=== PATIENT | female | born 1965 | race Caucasian/White ===

== ENCOUNTER 2021-02-16 11:36 | Emergency (ER) | payer MEDICAID ==
[2021-02-16 13:52] LABS: CHLORIDE,CL 106 mmol/L (98-107); SODIUM,NA 143 mmol/L (136-145)
[2021-02-16 14:07] LABS: ANION GAP 12.5 meq/L (7-15)
--- NOTE | 2021-02-16 14:09 | EDM.PDOC ---
ED HPI GENERAL MEDICAL PROBLEM - General Chief Complaint: Respiratory Problem Stated Complaint: COVID +, SOB Time Seen by Provider: 02/16/21 12:06 Source of Information: Reports: Patient History Limitations: Reports: No Limitations - History of Present Illness INITIAL COMMENTS - FREE TEXT/NARRATIVE: Patient referred to ER by PCP to be checked out due to acute Covid symptoms. Te sted + today. Has acute URI symptoms/cough/sinus congestion. Can't tell if she has body aches as she is always achy and feels that she is not much more achy than usual. Low grade temp of around 99. Headache (hx chronic headaches). Feeling a bit SOB but admits that is a chronic problem. Does not report having more SOB than usual pattern. Has had pulmonary function testing in past and it is normal despite her chronic issues with allergies/fluid retention. Has lasix that she takes PRN excess fluid retention. Is on immunosuppressive medication for R.A. Treatments DIRECTOR VALIDATION: Reports: Other (see below) Other Treatments DIRECTOR VALIDATION: None Headache Pain Score (Numeric/FACES): 9 - Related Data Allergies Allergy/AdvReac Type Severity Reaction Status Date / Time etanercept [From Enbrel] Allergy Severe Shortness Verified 02/16/21 11:57 of Breath, Angioedema Penicillins Allergy Severe Hives Verified 02/16/21 11:57 phenobarbital Allergy Severe Excitabilit Verified 02/16/21 11:57 y soy Allergy Severe congestion, Verified 02/16/21 12:02 cough vancomycin Allergy Severe Rash, Verified 02/16/21 12:02 itching codeine Allergy Nausea Verified 03/17/13 13:49 gabapentin Allergy memory Verified 02/16/21 12:02 loss, unable to function leflunomide [From Arava] Allergy Diarrhea Verified 02/16/21 11:58 meloxicam Allergy Cannot Verified 02/16/21 12:02 Remember methotrexate Allergy Rash Verified 02/16/21 12:02 niacin Allergy Hives Verified 03/17/13 13:49 pertussis vaccine,fluid Allergy Hives, Verified 02/16/21 12:02 [Pertussis Vaccine,Fluid] edema phenytoin sodium Allergy Vomiting Verified 03/17/13 13:49 [From Dilantin] phenytoin sodium extended Allergy Vomiting Verified 03/17/13 13:49 [From Dilantin] Sulfa (Sulfonamide Allergy Vomiting Verified 03/17/13 13:49 Antibiotics) tocilizumab [From Actemra] Allergy Swelling Verified 02/16/21 11:57 ct scan dye Allergy Severe Hives Uncoded 02/16/21 11:57 Home Meds: Home Meds Acetaminophen [Tylenol Extra Strength] 1,000 mg PO Q6H PRN 03/17/13 [History] Albuterol [Proventil HFA] 2 puff INH Q4H PRN 03/17/13 [History] Albuterol/Ipratropium [DuoNeb 3.0-0.5 MG/3 ML] 3 ml INH Q4HR PRN 03/17/13 [History] Cholecalciferol (Vitamin D3) [Vitamin D3] 2,000 unit PO DAILY 03/17/13 [History] Docusate Sodium [Colace] 100 mg PO Q2D PRN 03/17/13 [History] Escitalopram [Lexapro] 20 mg PO DAILY 03/17/13 [History] Hydroxychloroquine [Plaquenil] 200 mg PO BID@0800,209903/17/13 [History] Montelukast [Singulair] 10 mg PO BEDTIME 03/17/13 [History] Omeprazole [Prilosec] 20 mg PO BID@0800,209903/17/13 [History] Simvastatin [Zocor] 40 mg PO BEDTIME 03/17/13 [History] traMADol [Ultram] 50 mg PO BID PRN 03/17/13 [History] Calcium Carbonate/Vitamin D3 [Calcium 1,000 + D3 Caplet] 1 tab PO DAILY 02/16/21 [History] Furosemide [Lasix] 20 mg PO SXHCIV4H PRN 02/16/21 [History] Ibuprofen [Motrin] 800 mg PO BID PRN 02/16/21 [History] Meclizine [Antivert] 12.5 mg PO Q4HR MDD dizziness 02/16/21 [History] azaTHIOprine [Azathioprine] 50 mg PO DAILY@0800 02/16/21 [History] azaTHIOprine [Azathioprine] 100 mg PO BEDTIME 02/16/21 [History] busPIRone [Buspar] 5 mg PO ASDIRECTED PRN 02/16/21 [History] busPIRone [Buspar] 10 mg PO BID@0800,209902/16/21 [History] cycloSPORINE [Restasis Multidose] 1 drop PO BID@0800,2100 02/16/21 [History] diphenhydrAMINE [Benadryl] 12.5 mg PO Q4HR PRN 02/16/21 [History] diphenhydrAMINE [Benadryl] 25 mg PO BEDTIME 02/16/21 [History] guaiFENesin [Mucinex] 600 mg PO Q12HR PRN 02/16/21 [History] methylPREDNISolone [Medrol Dose Pack] 84 mg PO ASDIRECTED #1 dospk 02/16/21 [Rx] Past Medical History HEENT History: Reports: Allergic Rhinitis, Other (See Below) Other HEENT History: seasonal allergies Cardiovascular History: Reports: Heart Failure, High Cholesterol, Hypertension, Other (See Below) Other Cardiovascular History: hx. of cardiac asthma Respiratory History: Reports: Bronchitis, Recurrent, Other (See Below) (Reactive airway disease) Gastrointestinal History: Reports: Chronic Constipation, GERD Musculoskeletal History: Reports: Arthritis, Connective Tissue Disease, Osteoporosis, RA Other Musculoskeletal History: DJD of knees Neurological History: Reports: Headaches, Chronic Psychiatric History: Reports: Anxiety Endocrine/Metabolic History: Reports: Obesity/BMI 30+ - Past Surgical History Female Surgical History: Reports: Hysterectomy Social & Family History - Tobacco Use Tobacco Use Status *Q: Never Tobacco User Second Hand Smoke Exposure: No - Caffeine Use Caffeine Use: Reports: Coffee, Soda, Tea - Recreational Drug Use Recreational Drug Use: No ED ROS GENERAL - Review of Systems Review Of Systems: See Below Constitutional: Reports: Fever. Denies: Chills, Malaise, Weakness, Night Sweats, Diaphoresis, Decreased Appetite HEENT: Reports: Sinus Problem Respiratory: Reports: Shortness of Breath (chronic), Cough. Denies: Wheezing, Pleuritic Chest Pain, Sputum, Hemoptysis Cardiovascular: Reports: Other (feels puffy.). Denies: Chest Pain GI/Abdominal: Reports: Other (no acute changes reported) : Reports: Other (no acute changes) Musculoskeletal: Reports: Other (no acute changes from baseline) Skin: Reports: Other (no acute changes) Neurological: Reports: Headache (chronic), Other (no acute changes from baseline) Psychiatric: Reports: No Symptoms Hematologic/Lymphatic: Reports: No Symptoms ED EXAM, GENERAL - Physical Exam Exam: See Below Exam Limited By: No Limitations General Appearance: Alert, No Apparent Distress, Obese Eye Exam: Bilateral Eye: EOMI, PERRL Ears: Normal External Exam, Normal Canal, Hearing Grossly Normal Nose: No: Nasal Deformity, Nasal Swelling, Nasal Drainage Throat/Mouth: Normal Lips, Normal Voice, No Airway Compromise Head: Atraumatic, Normocephalic Neck: Normal Inspection, Supple, Non-Tender, Full Range of Motion. No: Lymphadenopathy (L), Lymphadenopathy (R) Respiratory/Chest: No Respiratory Distress, Lungs Clear, Normal Breath Sounds, No Accessory Muscle Use Cardiovascular: Regular Rate, Rhythm, No Murmur GI/Abdominal: Soft, Non-Tender (Female) Exam: Deferred Rectal (Female) Exam: Deferred Back Exam: No: CVA Tenderness (L), CVA Tenderness (R), Muscle Spasm Extremities: Non-Tender, No Pedal Edema, Normal Capillary Refill Neurological: Alert, Oriented, Normal Cognition, No Motor/Sensory Deficits Psychiatric: Normal Affect, Normal Mood Skin Exam: Warm, Dry, Intact, Normal Color Course - Vital Signs Last Recorded V/S: Last Vital Signs Temp 37.7 C 02/16/21 12:00 Pulse 74 02/16/21 12:00 Resp 18 02/16/21 12:00 BP 140/79 02/16/21 12:00 Pulse Ox 99 02/16/21 12:00 - Orders/Labs/Meds Orders: Active Orders 24 hr Category Date Time Status Chest 1V Frontal [CR] Stat Exams 02/16/21 13:09 Ordered COMPREHENSIVE METABOLIC PN,CMP [CHEM] Stat Lab 02/16/21 13:06 Ordered MG [MAGNESIUM] [CHEM] Stat Lab 02/16/21 13:09 Ordered PRO B-TYPE NATRIUR PEPT,BNPPRO [CHEM] Stat Lab 02/16/21 13:08 Ordered Labs: Laboratory Tests 02/16/21 02/16/21 Range/Units 13:20 13:32 WBC 4.2 (4.0-10.2) K/uL RBC 3.97 (3.77-5.09) M/uL Hgb 12.0 (11.7-15.5) g/dL Hct 36.6 (34.0-46.0) % MCV 92.2 D (84.0-98.0) fL MCH 30.2 (28.2-33.3) pg MCHC 32.8 (31.7-36.0) g/dL RDW 14.9 H (11.2-14.1) % Plt Count 266 D (150-350) K/uL Neut % (Auto) 66.7 (45.0-80.0) % Lymph % (Auto) 17.5 (10.0-50.0) % [place] % (Auto) 10.6 (2.0-14.0) % Eos % (Auto) 3.8 (0.0-5.0) % Baso % (Auto) 1.4 (0.0-2.0) % Neut # (Auto) 2.77 (1.40-7.00) K/uL Lymph # (Auto) 0.73 (0.50-3.50) K/uL [place] # (Auto) 0.44 (0.00-1.00) K/uL Eos # (Auto) 0.16 (0.00-0.50) K/uL Baso # (Auto) 0.06 (0.00-0.20) K/uL Specimen Type Urinvoid Urine Color Light yellow Urine Appearance Clear Urine pH 7.0 (5.0-9.0) Ur Specific [place] 1.010 (1.005-1.030) Urine Protein Negative (NEGATIVE) mg/dL Urine Glucose (UA) Negative (NEGATIVE) mg/dL Urine Ketones Negative (NEGATIVE) mg/dL Urine Occult Blood Trace-lysed H (NEGATIVE) Urine Nitrite Negative (NEGATIVE) Urine Bilirubin Negative (NEGATIVE) Urine Urobilinogen 0.2 (0.2-1.0) E.U./dL Ur Leukocyte Esterase Negative (NEGATIVE) Urine RBC 0-5 /HPF Urine WBC 0-5 /HPF Ur Epithelial Cells Occasional /LPF - Re-Assessments/Exams Free Text/Narrative Re-Assessment/Exam: 02/16/21 14:19 Chest xray unremarkable. Labs unremarkable other than mild decrease potassium. No obvious fluid overload on exam/xray. Normal proBNP. Vital signs stable. OK for discharge home. Patient concerned that her reactive airway disease will be set off by the Covid infection and requested a medrol dose pack. She has nebs/inhalers at home for PRN use. Pharmacy will work with patient's PCP to get her scheduled for Monoclonals tomorrow. Precautions reviewed. To follow up as needed PRN problems/worsening issues. She does have home pulse ox. Departure - Departure Time of Disposition: 14:25 Disposition: Home, Self-Care 01 Condition: Good Clinical Impression: COVID-19 virus infection, Hypokalemia - Discharge Information *PRESCRIPTION DRUG MONITORING PROGRAM REVIEWED*: Not Applicable *COPY OF PRESCRIPTION DRUG MONITORING REPORT IN PATIENT VANIA: Not Applicable Instructions: Hypokalemia Referrals: Ayala Graham NP [Primary Care Provider] - Additional Instructions: Follow up tomorrow for Monoclonal infusion if you are able to set up an appointment that works for you. Follow up otherwise as needed if you feel worse/pulse ox drops as we reviewed. Your potassium was slightly low today. Recommend recheck later this week via clinic. You may need potassium supplementation if still low. Sepsis Event Note (ED) - Evaluation Sepsis Screening Result: No Definite Risk - Focused Exam Vital Signs: Vital Signs Temp Pulse Resp BP Pulse Ox 02/16/21 12:00 37.7 C 74 18 140/79 99 - My Orders Last 24 Hours: My Active Orders 02/16/21 13:06 COMPREHENSIVE METABOLIC PN,CMP [CHEM] Stat 02/16/21 13:08 PRO B-TYPE NATRIUR PEPT,BNPPRO [CHEM] Stat 02/16/21 13:09 Chest 1V Frontal [CR] Stat MG [MAGNESIUM] [CHEM] Stat - Assessment/Plan Last 24 Hours: My Active Orders 02/16/21 13:06 COMPREHENSIVE METABOLIC PN,CMP [CHEM] Stat 02/16/21 13:08 PRO B-TYPE NATRIUR PEPT,BNPPRO [CHEM] Stat 02/16/21 13:09 Chest 1V Frontal [CR] Stat MG [MAGNESIUM] [CHEM] Stat
[2021-02-16] MEDS ORDERED: Potassium Chloride 10 MEQ Tab.ER PO ONE (14:29)
== END 2021-02-16 15:00 | disposition home or self-care (01) ==
LOC: LL.ED 11:36
DX: U07.1 COVID-19 (principal); E87.6 Hypokalemia; I11.0 Hypertensive heart disease with heart failure; I50.9 Heart failure, unspecified; E78.00 Pure hypercholesterolemia, unspecified; E66.9 Obesity, unspecified; K21.9 Gastro-esophageal reflux disease without esophagitis; Z68.34 Body mass index [BMI] 34.0-34.9, adult; Z88.0 Allergy status to penicillin; Z88.5 Allergy status to narcotic agent; Z91.041 Radiographic dye allergy status; Z88.2 Allergy status to sulfonamides; Z88.1 Allergy status to other antibiotic agents; Z88.7 Allergy status to serum and vaccine; Z91.018 Allergy to other foods; Z88.8 Allergy status to other drugs, medicaments and biological substances; Z79.899 Other long term (current) drug therapy
CPT/HCPCS: 36415; 71045; 80053; 81001; 83735; 83880; 85025; 99284; 99284-25; A9270-GY